=== PATIENT | male | born 1935 | race African-American/Black ===

== ENCOUNTER 2021-05-22 11:01 | Emergency (ER) | payer MEDICARE, MEDICAID ==
[~2021-05-22] VITALS: Ht 175.3 cm; Wt 68.0 kg
[2021-05-22 11:53] LABS: IMMATURE GRANULOCYTES 0.7 % (0.0-5.0); MEAN CELL VOLUME 81.8 fL CALC (80.0-100.0); MEAN CORPUSCULAR HGB 25.5 pG CALC (26.0-32.0); MEAN CORPUSCULAR HGB CONC 31.2 g/dL CAL (32.0-36.0); NEUT# 3.68 thou/uL (1.82-7.42); RED BLOOD COUNT 3.29 mill/uL (4.70-6.10); RED CELL DISTRI WIDTH 16.1 % (11.5-15.5)
[2021-05-22 12:00] LABS: HEMATOCRIT 26.9 % (39.0-50.0); HEMOGLOBIN 8.4 g/dl (14.0-18.0)
[2021-05-22] MEDS ORDERED: VITAMIN C 500 M1 TAB PO (12:03)
[2021-05-22] MEDS ORDERED: DULCOLAX10 MG RE (12:03)
[2021-05-22] MEDS ORDERED: ASPIRIN81 MG PO (12:04)
[2021-05-22] MEDS ORDERED: KRISTALOSE20 GM PO (12:05)
[2021-05-22] MEDS ORDERED: LOSARTAN POTASS50 MG PO (12:06)
[2021-05-22] MEDS ORDERED: LIPITOR80 M1 PO (12:06)
[2021-05-22] MEDS ORDERED: BRIMONIDINE0.2 % OS (12:07)
[2021-05-22 12:10] LABS: ALBUMIN 4.2 g/dL (3.2-5.0); POTASSIUM 4.5 mmol/l (3.5-5.1); TOTAL PROTEIN 7.9 g/dL (6.3-8.2)
[2021-05-22] MEDS ORDERED: NEXIUM40 M1 PO (12:10)
[2021-05-22] MEDS ORDERED: PHOSLO667 MG PO (12:11)
[2021-05-22] MEDS ORDERED: PHOSLO667 M1 PO (12:12)
[2021-05-22] MEDS ORDERED: CARVEDILOL25 MG PO (12:14)
[2021-05-22] MEDS ORDERED: NIFEDIPINE60 MG PO (12:14)
[2021-05-22] MEDS ORDERED: OMEPRAZOLE20 MG PO (12:30)
[2021-05-22] MEDS ORDERED: CLONIDINE0.1 MG PO (12:38)
[2021-05-22] MEDS ORDERED: VITAMIN D32000 UNI2 PO (12:38)
[2021-05-22] MEDS ORDERED: D3250 MCG (12:38)
[2021-05-22] MEDS ORDERED: CLOPIDOGREL75 MG PO (12:39)
[2021-05-22] MEDS ORDERED: TEMAZEPAM15 MG PO (12:39)
[2021-05-22] MEDS ORDERED: TRAZODONE100 MG PO (12:40)
[2021-05-22 13:00] VITALS: BP 182/89
[2021-05-22 13:11] LABS: CREATININE 9.8 mg/dL (0.7-1.3)
== END 2021-05-22 13:15 | disposition home or self-care (01) ==
LOC: ED 11:01
DX: I50.9 Heart failure, unspecified (principal); N18.6 End stage renal disease; E78.5 Hyperlipidemia, unspecified; B19.20 Unspecified viral hepatitis C without hepatic coma; Z99.2 Dependence on renal dialysis; Z20.822 Contact with and (suspected) exposure to COVID-19

== ENCOUNTER 2021-07-01 11:50 | Emergency (ER) | payer MEDICARE, MEDICAID ==
[~2021-07-01] VITALS: Ht 175.3 cm; Wt 70.0 kg
[~2021-07-01 11:50] MED LIST: ASPIRIN81 MG PO; BRIMONIDINE0.2 % OS; CARVEDILOL25 MG PO; CLONIDINE0.1 MG PO; CLOPIDOGREL75 MG PO; D3250 MCG; DULCOLAX10 MG RE; KRISTALOSE20 GM PO; LIPITOR80 M1 PO; LOSARTAN POTASS50 MG PO; NEXIUM40 M1 PO; NIFEDIPINE60 MG PO; OMEPRAZOLE20 MG PO; PHOSLO667 M1 PO; PHOSLO667 MG PO; TEMAZEPAM15 MG PO; TRAZODONE100 MG PO; VITAMIN C 500 M1 TAB PO; VITAMIN D32000 UNI2 PO
[2021-07-01 13:13] LABS: HEMATOCRIT 32.7 % (39.0-50.0); HEMOGLOBIN 10.3 g/dl (14.0-18.0); MEAN CELL VOLUME 83.4 fL CALC (80.0-100.0); MEAN CORPUSCULAR HGB 26.3 pG CALC (26.0-32.0); MEAN CORPUSCULAR HGB CONC 31.5 g/dL CAL (32.0-36.0); NEUT# 2.33 thou/uL (1.82-7.42); RED BLOOD COUNT 3.92 mill/uL (4.70-6.10)
[2021-07-01 14:14] LABS: ALBUMIN 4.3 g/dL (3.2-5.0); BILIRUBIN, TOTAL 0.7 mg/dL (0.0-1.4); POTASSIUM 4.5 mmol/l (3.5-5.1)
[2021-07-01 14:18] LABS: CREATININE 11.2 mg/dL (0.7-1.3)
[2021-07-01 19:56] LABS: URINE BILIRUBIN - DIPSTICK NEGATIVE (NEGATIVE); URINE BLOOD DIPSTICK SMALL (NEGATIVE); URINE COLOR YELLOW; URINE GLUCOSE - DIPSTICK NEGATIVE (NEGATIVE); URINE KETONE NEGATIVE (NEGATIVE); URINE LEUK ESTERASE TRACE (NEGATIVE); URINE PH 8.5 (4.5-8.0); URINE PROTEIN - DIPSTICK 100 mg/dL (NEG-TRACE); URINE UROBILINOGEN - DIPSTICK 0.2 E.U./dL (0.2)
[2021-07-01 19:58] LABS: URINE NITRITE - DIPSTICK NEGATIVE (Negative); URINE WBC 0-2 WBC/hpf (0-5)
[2021-07-01 23:15] VITALS: BP 177/78
== END 2021-07-01 23:15 ==
LOC: ED 11:50
PROVIDERS: Family Medicine
PROC: 05HM33Z Insertion of Infusion Device into Right Internal Jugular Vein, Percutaneous Approach (ICD-10-PCS; principal; 2021-07-01)
DX: R10.84 Generalized abdominal pain (principal); I12.0 Hypertensive chronic kidney disease with stage 5 chronic kidney disease or end stage renal disease; N18.6 End stage renal disease; D63.1 Anemia in chronic kidney disease; B19.20 Unspecified viral hepatitis C without hepatic coma; E78.5 Hyperlipidemia, unspecified; Z99.2 Dependence on renal dialysis; Z95.828 Presence of other vascular implants and grafts; Z20.822 Contact with and (suspected) exposure to COVID-19
CPT/HCPCS: Q9967; S0164